=== PATIENT | female | born 1975 | race African-American/Black ===

== ENCOUNTER 2021-12-22 18:26 | Emergency (ER) | payer MEDICARE, MEDICAID ==
[~2021-12-22] VITALS: Ht 165.1 cm; Wt 73.0 kg
[2021-12-22 20:27] LABS: CLARITY URINE CLEAR (CLEAR); COLOR URINE YELLOW (YELLOW); KETONES URINE NEGATIVE (NEGATIVE); LEUKOCYTE ESTERASE URINE 3+ (NEGATIVE); NITRITE URINE NEGATIVE (NEGATIVE); OCCULT BLOOD URINE NEGATIVE (NEGATIVE); PROTEIN URINE NEGATIVE (NEGATIVE); SPECIFIC GRAVITY URINE 1.012 (1.005-1.030); UROBILINOGEN URINE 0.2 E.U./dL (0.2-1.0)
[2021-12-22 20:49] LABS: BASOPHILS % 0.5 % (0.0-2.0); EOSINOPHILS % 1.8 % (0.0-5.0); HEMATOCRIT. 36.2 % (36.0-48.0); HEMOGLOBIN. 12.1 g/dL (12.0-16.0); MEAN CORPUSCULAR VOLUME 95.7 fL (81.0-99.0); MONOCYTES % 9.6 % (2.0-8.0); NEUTROPHILS % 61.1 % (40.0-76.0); PLATELET 194 x1000/uL (130-400); RED BLOOD CELL COUNT 3.79 mill/uL (4.2-5.4); RED CELL DISTRIBUTION WIDTH 13.9 % (11.6-14.6)
[2021-12-22 20:58] LABS: CHLORIDE 108 mEq/L (98-107)
[2021-12-22] MEDS ORDERED: VALPROIC ACID 250MG CAPSULE PO ONE (21:30)
[2021-12-22] MEDS ORDERED: DIVA500T3 MT (22:04)
[2021-12-22 22:45] VITALS: BP 130/78
[2021-12-22] MEDS ORDERED: CEPH500C2 MT (22:52)
== END 2021-12-22 23:22 | disposition home or self-care (01) ==
LOC: ER 18:26
DX: G40.909 Epilepsy, unspecified, not intractable, without status epilepticus (principal)
CPT/HCPCS: 36415; 80053; 80165; 81003; 85025; 99285

== ENCOUNTER 2022-01-24 16:09 | Emergency (ER) | payer MEDICAID, MEDICARE ==
[~2022-01-24] VITALS: Ht 170.2 cm; Wt 91.0 kg
[~2022-01-24 16:09] MED LIST: CEPH500C2 MT; DIVA500T3 MT
[2022-01-24] MEDS ORDERED: HYDROCODONE/ACETAMINOPHEN 5/325MG TABLET PO ONE (21:00)
[2022-01-24] MEDS ORDERED: HYDR-4001 MT (21:47)
[2022-01-24 22:00] VITALS: BP 118/64
== END 2022-01-24 22:00 | disposition home or self-care (01) ==
LOC: ER 16:09
DX: M17.12 Unilateral primary osteoarthritis, left knee (principal); F31.9 Bipolar disorder, unspecified; F20.9 Schizophrenia, unspecified; R56.9 Unspecified convulsions; Z88.2 Allergy status to sulfonamides; Z88.8 Allergy status to other drugs, medicaments and biological substances; Z87.19 Personal history of other diseases of the digestive system; Z98.890 Other specified postprocedural states
CPT/HCPCS: 73560; 99283

== ENCOUNTER 2022-05-01 12:46 | Emergency (ER) | payer MEDICARE, MEDICAID ==
[~2022-05-01] VITALS: Ht 171.4 cm; Wt 100.0 kg
[~2022-05-01 12:46] MED LIST changes: +HYDR-4001 MT
[2022-05-01 13:31] VITALS: BP 150/81
== END 2022-05-01 15:34 | disposition home or self-care (01) ==
LOC: ER 12:46
DX: G44.209 Tension-type headache, unspecified, not intractable (principal); F31.9 Bipolar disorder, unspecified; F20.9 Schizophrenia, unspecified; R56.9 Unspecified convulsions; M19.90 Unspecified osteoarthritis, unspecified site; Z88.2 Allergy status to sulfonamides; Z88.3 Allergy status to other anti-infective agents; Z98.890 Other specified postprocedural states
CPT/HCPCS: 99284

== ENCOUNTER 2022-11-06 18:56 | Emergency (ER) | payer MEDICARE, MEDICAID ==
[~2022-11-06] VITALS: Ht 172.7 cm; Wt 82.0 kg
[2022-11-06 19:44] LABS: BASOPHILS % 0.5 % (0.0-2.0); EOSINOPHILS % 2.1 % (0.0-5.0); HEMATOCRIT. 38.9 % (36.0-48.0); HEMOGLOBIN. 13.2 g/dL (12.0-16.0); LYMPHOCYTES % 49.9 % (20.0-50.0); MEAN CORPUSCULAR HEMOGLOBIN 33.4 pg (28.0-32.0); MEAN PLATELET VOLUME 9.3 fl (7.4-10.4); MONOCYTES % 8.4 % (2.0-8.0); NEUTROPHILS % 39.1 % (40.0-76.0); PLATELET 155 x1000/uL (130-400); RED BLOOD CELL COUNT 3.97 mill/uL (4.2-5.4); RED CELL DISTRIBUTION WIDTH 14.9 % (11.6-14.6)
[2022-11-06 19:53] LABS: CHLORIDE 104 mEq/L (98-107)
[2022-11-06] MEDS ORDERED: MECLIZINE 12.5MG TABLET PO ONE (21:00)
[2022-11-06 21:07] LABS: CLARITY URINE CLEAR (CLEAR); COLOR URINE YELLOW (YELLOW); KETONES URINE NEGATIVE (NEGATIVE); LEUKOCYTE ESTERASE URINE TRACE (NEGATIVE); NITRITE URINE NEGATIVE (NEGATIVE); OCCULT BLOOD URINE NEGATIVE (NEGATIVE); PH URINE 6.5 (4.5-8.0); PROTEIN URINE NEGATIVE (NEGATIVE); SPECIFIC GRAVITY URINE 1.005 (1.005-1.030); UROBILINOGEN URINE 0.2 E.U./dL (0.2-1.0)
[2022-11-06 22:08] VITALS: BP 139/89
== END 2022-11-06 22:11 | disposition home or self-care (01) ==
LOC: ER 18:56
DX: R42 Dizziness and giddiness (principal); I10 Essential (primary) hypertension; E11.9 Type 2 diabetes mellitus without complications; Z88.1 Allergy status to other antibiotic agents; Z88.8 Allergy status to other drugs, medicaments and biological substances; Z88.2 Allergy status to sulfonamides; Z98.890 Other specified postprocedural states; Z86.59 Personal history of other mental and behavioral disorders
CPT/HCPCS: 36415; 80053; 81003; 84484; 85025; 93005; 99284; J8597

== ENCOUNTER 2023-05-11 15:43 | Emergency (ER) | payer BC, MEDICAID ==
[~2023-05-11] VITALS: Ht 172.7 cm; Wt 110.0 kg
[2023-05-11 15:45] VITALS: O2SAT 100
[2023-05-11] MEDS ORDERED: TOPUD MT (17:38)
[2023-05-11] MEDS ORDERED: ACET-2708 MT (17:38)
[2023-05-11 18:37] VITALS: BP 138/87; PULSE 82; RESP 19; TEMP 98.2
== END 2023-05-11 18:40 | disposition home or self-care (01) ==
LOC: ER 15:43
DX: S83.411A Sprain of medial collateral ligament of right knee, initial encounter (principal); M17.11 Unilateral primary osteoarthritis, right knee; F31.9 Bipolar disorder, unspecified; E11.9 Type 2 diabetes mellitus without complications; F20.9 Schizophrenia, unspecified; Z88.2 Allergy status to sulfonamides; Z88.8 Allergy status to other drugs, medicaments and biological substances; Z98.890 Other specified postprocedural states; X58.XXXA Exposure to other specified factors, initial encounter; Y93.89 Activity, other specified; Y92.89 Other specified places as the place of occurrence of the external cause; Y99.8 Other external cause status
CPT/HCPCS: 73560; 73590; 99284